=== PATIENT | male | born 1990 | race Caucasian/White ===

== ENCOUNTER 2023-11-23 12:40 | Inpatient (IN) | payer MEDICAID, SELFPAY ==
[2023-11-23 12:44] VITALS: BP 132/87; PULSE 96; RESP 16; TEMP 36.8; O2SAT 100; BMI 19.9
--- NOTE | 2023-11-23 13:07 | ED.PSYCH ---
HPI - Psych General Chief Complaint: Psychiatric Symptoms Stated Complaint: crisis SI Time Seen by Provider: 11/23/23 13:00 Source: patient Mode of arrival: ambulatory Limitations: no limitations History of Present Illness ED Provider: SAM PICKETT Narrative: 32 yo male with PMH of ETOH abuse just seen at [facility] last night for vomiting presents after texting sister with SI and plan to jump off bridge. He notes he was admitted to [facility] after heavy drinking on Tuesday admitted until yesterday AM for afib, ETOH gastritis vomiting blood - had labs, IVF, IV ativan, CT scan of chest. He was discharged not sent home on any medications has not drank since. Came here with continued nausea but also SI. No prior attempts - alludes to being triggered by something on Tuesday. When asked about ETOH seizures he states I am not sure. complaint: suicidal ideation and feels depressed Onset (ago): day(s) (Tuesday) Duration: constant History of same: Yes Relieving factors: none Exacerbating factors: alcohol and other Context: recent alcohol abuse Associated psychiatric symptoms: depression and suicidal ideation Associated symptoms: other (nausea) Treatments prior to arrival: none If self harm: admits thoughts of self harm and has plan Related Data Home Medications ?Medication ?Instructions ?Recorded ?Confirmed No Known Home Meds 11/23/23 11/23/23 Allergies Allergy/AdvReac Type Severity Reaction Status Date / Time No Known Allergies Allergy Verified 11/23/23 12:48 Review of Systems Review of Systems: Constitutional : No Fever, No Chills ENT/Mouth : No Ear Pain, No Nasal Congestion, No sore throat Eyes: No Eye Pain, No Swelling, No Redness Cardiovascular : No Chest Pain, No SOB Respiratory : No Cough, No Sputum, No Dyspnea Gastrointestinal : pos Nausea, No Vomiting, No Diarrhea, No Hematochezia, No Melena Genitourinary : No Dysuria, No Urinary Frequency, No Hematuria Musculoskeletal : No Myalgias Skin : No Skin Lesions, No rash Neuro : No Weakness, No Numbness, No Paresthesias, No Dizziness, No Headache Psych : positive Anxiety, positive Depression, positive SI no HI Heme/Lymph: No Lymphadenopathy Endocrine : No Polyuria, No Polydipsia All other systems reviewed and are negative [facility] Past Medical History Attestation statement: The following information was validated with the patient. Medical History Alcoholic gastritis Afib Alcohol abuse Social History Social History (Updated 11/23/23 @ 13:35 by Nadeen Rosales DO) Alcohol intake: current Alcohol intake frequency: 3 or more drinks per day Patient Tobacco Use Status: Current someday Tobacco user Smoked in Last 30 Days: Yes Use of substances other than those prescribed or required for medical reasons: Yes Substance Use Type: Marijuana Substance Use Frequency: Occasionally Last Used Substance: Days (ago) Any prior treatment program specific to substance use: No Advance Directives: No Nutrition Risks: No Nutritional Risk Physical Exam Vital Signs: Vital Signs: Last Vital Signs Temp 98.7 F 11/23/23 16:38 Pulse 87 11/23/23 16:38 Resp 18 11/23/23 16:38 BP 116/66 11/23/23 16:38 Pulse Ox 97 11/23/23 16:38 O2 Del Method Room Air 11/23/23 16:38 BMI result Body Mass Index 19.9 Appearance: Alert. Oriented X3. No acute distress. no tremors, very withdrawn and flat affect Eyes: Pupils equal, round and reactive to light. ENT: Pharynx normal. Neck: Normal inspection. Neck supple. CVS: Normal heart rate and rhythm. Pulses normal. Respiratory: No respiratory distress. Breath sounds normal. Abdomen: Soft and nontender. Skin: Skin warm and dry. Normal skin color. Normal skin turgor. Extremities: No lower extremity edema. No calf ttp Neuro: Oriented X 3. No motor deficit. No sensory deficit. CN2-12 intact Course Course Course Narrative: [facility] 11/21 discharge hematemesis, diverticulitis - held antibiotics, cleared AG acidosis, WBC downtrended. DC home. Reevaluation(s) Reevaluation #1: observation care revealed that the patient does meet psychiatric necessity for hospitalization. final disposition discussed with the patient. The patient completed observation care at 9pm Medications Administered Generic Name Dose Route Start Last Admin Trade Name Freq PRN Reason Stop Dose Admin Lorazepam 2 mg 11/23/23 13:04 11/23/23 13:22 Lorazepam 1 Mg Tablet PO 2 mg Q3H PRN Administration Alcohol Withdrawal Discontinued Medications Generic Name Dose Route Start Last Admin Trade Name Freq PRN Reason Stop Dose Admin Nicotine 21 mg 11/23/23 15:50 11/23/23 16:08 Nicotine 21 Mg Patch.Td24 TRANSDERMA 11/23/23 15:51 Not Given ONCE ONE Medical Decision Making Medical Decision Making MDM Narrative: 32 yo male with PMH of heavy etoh abuse last drink Tuesday here with c/o SI and depression just had inpatient stay at [facility] trying to get outside records at this time will need labs, PRN ativan, record request, CIWA scale, EKG and consult from [facility]. Differential Diagnosis Differential Diagnoses: The differential diagnosis associated with the presentation includes ETOH abuse, lyte abnormality, SI Admission/Observation Consideration of admission/observation: Escalation of care including admission/observation considered physician observation started at 140pm pending CARE team Consult Healthcare Provider Management of the patient was discussed with: Behavioral Health Provider Lab Data [facility] Lab Attestation statement: I reviewed the patient's lab results. 11/23/23 13:26 11/23/23 13:26 Labs: Lab Results 11/23/23 Range/Units 13:26 WBC 8.4 (4.8-10.8) X10*3/uL RBC 4.01 L (4.60-5.80) X10*6/uL Hgb 12.9 L (14.0-18.0) g/dl Hct 37.7 L (42.0-52.0) % MCV 94.0 (80.0-98.0) fL MCH 32.2 (27.0-33.0) pg MCHC 34.2 (31.0-36.0) g/dl RDW 13.1 (11.0-16.0) % Plt Count 217 (160-400) X10*3/uL MPV 11.1 (9.4-12.4) fL Immature Gran % (Auto) 0.5 H (0.0-0.4) % Neut % (Auto) 72.6 (45-73) % Lymph % (Auto) 15.8 L (20-40) % [place] % (Auto) 10.2 (2-11) % Eos % (Auto) 0.4 (0-4) % Baso % (Auto) 0.5 (0-2) % Lymph # (Auto) 1.3 (1.2-4.9) X10*3/uL [place] # (Auto) 0.9 (0.1-1.2) X10*3/uL Eos # (Auto) 0.0 (0.0-0.4) X10*3/uL Baso # (Auto) 0.0 (0.0-0.2) X10*3/uL Abs Immat Gran (auto) 0.04 H (0.00-0.03) X10*3/uL Absolute Neuts (auto) 6.1 (2.0-8.3) x10*3/uL Absolute Nucleated RBC 0.000 (0.0-0.012) X10*3/uL Nucleated RBC % (auto) 0.0 (0.0-0.2) /100WBC Sodium 141 (135-145) mmol/L Potassium 3.8 (3.3-5.1) mmol/L Chloride 104 (96-108) mmol/L Carbon Dioxide 29 (22-29) mmol/L Anion Gap 12 (12-20) BUN 9 (9-16) mg/dL Creatinine 0.80 (0.5-1.4) mg/dL Estim Creat Clear Calc 108.0 Estimated GFR > 60 Random Glucose 102 (60-115) mg/dL Calcium 9.6 (8.4-10.2) mg/dL Magnesium 2.0 (1.6-2.6) mg/dL Total Bilirubin 0.6 (0.0-1.0) mg/dL AST 20 (5-37) U/L ALT 12 (0-40) U/L Alkaline Phosphatase 64 (39-117) U/L Total Protein 6.6 (6.5-8.0) g/dL Albumin 3.9 (3.5-5.0) g/dL Ethyl Alcohol < 10 mg/dL Independent Interpretation I performed an independent interpretation of an: EKG Interpretation: Rate: 64 Rhythm: NSR [place]: normal Normal P waves. Normal NATALIE. Normal QRS complex. ST T wave : no PAM, inverted t waves V1 and III qTC: 439 prior studies: no acute ischemia The study has been interpreted contemporaneously by me. . External Record Review External record reviewed: Outpatient record Discharge Plan Discharge Clinical Impression: Suicidal ideation, Alcohol use disorder Patient Disposition: Admitted As Inpatient Interventions: [place]-Suicide Risk Severity Scale Last Done: 11/23/23 13:14
[2023-11-23] MEDS: LORazepam 1 MG TABLET 2 MG PO (13:22)
[2023-11-23 13:33] LABS: MANUAL DIFF FLAG NO
--- NOTE | 2023-11-23 13:33 | ECG_ITS ---
Test Reason : qtc andafib as well Blood Pressure : / mmHG Vent. Rate : 064 BPM Atrial Rate : 064 BPM P-R Int : 114 ms QRS Dur : 080 ms QT Int : 426 ms P-R-T Axes : 028 -02 001 degrees QTc Int : 439 ms Normal sinus rhythm Minimal voltage criteria for LVH, may be normal variant ( R in aVL ) Borderline ECG No previous ECGs available Referred By: Nadeen Rosales Electronically Signed By:Jhony Hernadez
[2023-11-23 13:46] LABS: Basophils Percent Auto 0.5 % (0-2); Eosinophils Percent Auto 0.4 % (0-4); Hematocrit 37.7 % (42.0-52.0); Hemoglobin 12.9 g/dl (14.0-18.0); Imm Gran Abs Auto 0.04 X10*3/uL (0.00-0.03); Imm Gran Pct Auto 0.5 % (0.0-0.4); Lymphocytes Absolute Auto 1.3 X10*3/uL (1.2-4.9); Lymphocytes Percent Auto 15.8 % (20-40); Mean Corpuscular HGB Conc 34.2 g/dl (31.0-36.0); Mean Corpuscular Hemoglobin 32.2 pg (27.0-33.0); Mean Platelet Volume 11.1 fL (9.4-12.4); Monocytes Absolute Auto 0.9 X10*3/uL (0.1-1.2); Monocytes Percent Auto 10.2 % (2-11); Neutrophils Absolute Auto 6.1 x10*3/uL (2.0-8.3); Neutrophils Percent Auto 72.6 % (45-73); Platelet Count 217 X10*3/uL (160-400); Red Blood Count 4.01 X10*6/uL (4.60-5.80); Red Cell Distribution Width 13.1 % (11.0-16.0); White Blood Count 8.4 X10*3/uL (4.8-10.8)
[2023-11-23 13:57] LABS: Alanine Aminotransferase 12 U/L (0-40); Albumin Level 3.9 g/dL (3.5-5.0); Alkaline Phosphatase 64 U/L (39-117); Anion Gap 12 (12-20); Aspartate Amino Transferase 20 U/L (5-37); Bilirubin Total 0.6 mg/dL (0.0-1.0); Blood Urea Nitrogen 9 mg/dL (9-16); Calcium 9.6 mg/dL (8.4-10.2); Carbon Dioxide 29 mmol/L (22-29); Chloride 104 mmol/L (96-108); Estimated Glomerular Filt Rate > 60; Ethanol < 10 mg/dL; Glucose Random 102 mg/dL (60-115); Potassium 3.8 mmol/L (3.3-5.1); Sodium 141 mmol/L (135-145); Total Protein 6.6 g/dL (6.5-8.0)
--- NOTE | 2023-11-23 14:45 | PC.NURSE ---
Assumed care of patient at 1430, patient comes in from home after being discharged from [facility] this am. Patient reports that he was at [facility] due to throwing up blood, work up was negative. When he went home he called his sister and told her that he was planning on jumping off a bridge. Sister brought patient to the ER. Patient withdrawn in triage and during assessment with this RN. Patient endorses SI but is unwilling to elaborate on SI thoughts. Patient does endorse drinking regularly, last CIWA of 5 with ativan administered per JUN. Patient appears to be in no apparent distress at this time. Continue plan of care for CARE team assessment and dispo
[2023-11-23 15:07] VITALS: RESP 14
--- NOTE | 2023-11-23 15:40 | MHC.CARE ---
Patient evaluated by the CARE Team, disposition determined to be inpatient psychiatric care.
[2023-11-23 16:38] VITALS: BP 116/66; PULSE 87; RESP 18; TEMP 37.1; O2SAT 97
--- NOTE | 2023-11-23 18:02 | PC.NURSE ---
late entry: patient moved from ED 14 to pod 4. Patient offers no complaints, reports he cannot provide urine sample at that time. Patient now sleeping, respirations even and unlabored, no apparent distress noted
--- NOTE | 2023-11-23 18:17 | PC.NURSE ---
This RN verified home medications with patient. Patient verbalized that he takes no home medications and is not prescribed anything. This is reflected in the medication reconciliation in the chart
--- NOTE | 2023-11-23 19:28 | PC.NURSE ---
patient appears to remain at rest at present respirations are even and unlabored patient appears in no distress
[2023-11-23 22:10] VITALS: BP 124/85; PULSE 75; RESP 20; TEMP 36.6; O2SAT 98
[2023-11-23] MEDS: hydrOXYzine HCL 25 MG TABLET PO (22:25)
[2023-11-23] MEDS: traZODone HCL 50 MG TABLET PO (22:25)
--- NOTE | 2023-11-23 23:32 | PC.ADMIT ---
32 year old male with a PMH of Afib, alcohol use disorder, and alcoholic gastritis causing hematemesis. He was hospitalized at [facility] for vomiting blood, but was released and told his sister that he would find a bridge and jump off it. He was then brought [place] [facility] Skin check completed, notable only for a large bruise on the inside of his upper left arm. He is on CIWAs Q4, but not currently scoring. He denies HI and physical pain; endorses SI, but denies a plan. Denies AH/VH, but appears to be watching something moving in the room. Rates both anxiety and depression at 10/10. Patient states he has not eaten since Tuesday, and refuses to fill out menu, because it's a waste of time. Declines to participate in the assessment and retired to bed.
[2023-11-24 02:30] VITALS: BMI 19.9
--- NOTE | 2023-11-24 03:30 | PC.ADMIT ---
32 year old male CV with 15 minute checks. PMH of Afib, alcohol use disorder, and alcoholic gastritis causing hematemesis. He was hospitalized at [facility] for vomiting blood, but was released and told his sister that he would find a bridge and jump off it. He was then brought here to [facility]. Skin check completed, notable only for a large bruise on the inside of his upper left arm. He is on CIWAs Q4, but not currently scoring. He denies HI and physical pain; endorses SI, but denies a plan. Denies AH/VH, but appears to be watching something moving in the room. Rates both anxiety and depression at 10/10. Patient states he has not eaten since Tuesday, and refuses to fill out menu, because it's a waste of time. Declines to participate in the assessment and retired to bed.
[2023-11-24 08:00] VITALS: BP 102/58; PULSE 70; RESP 18; TEMP 36.1; O2SAT 98
[2023-11-24 09:04] LABS: Alanine Aminotransferase 12 U/L (0-40); Albumin Level 3.9 g/dL (3.5-5.0); Alkaline Phosphatase 68 U/L (39-117); Anion Gap 13 (12-20); Aspartate Amino Transferase 20 U/L (5-37); Bilirubin Total 0.8 mg/dL (0.0-1.0); Blood Urea Nitrogen 9 mg/dL (9-16); Calcium 9.5 mg/dL (8.4-10.2); Carbon Dioxide 29 mmol/L (22-29); Chloride 104 mmol/L (96-108); Cholesterol 134 mg/dL (<200); Creatinine Clr Calc Pharmacy 118.2; Estimated Glomerular Filt Rate > 60; Glucose Fasting 79 mg/dL (60-99); HDL Cholesterol 49 mg/dL (>40); LDL Cholesterol Calculated 64 mg/dL (<100); Potassium 3.9 mmol/L (3.3-5.1); Sodium 142 mmol/L (135-145); Total Protein 6.8 g/dL (6.5-8.0); Triglycerides 108 mg/dL (<150)
[2023-11-24 10:33] LABS: Appearance Urine Cloudy; Color Urine Yellow; Glucose Urine UA Negative (Negative); Leukocyte Esterase Urine Negative (Negative); Nitrite Urine Negative (Negative); PH 6.5 (5.0-9.0); Specific Gravity - Urine 1.025 (1.005-1.025); Urine Blood Negative (Negative); Urine Ketones 80 mg/dL (Negative); Urine Protein Negative (Neg-Trace)
[2023-11-24 10:56] LABS: Amphetamine Screen Urine Not Detected (Not Detect); Barbiturates, Urine Not Detected (Not Detect); Benzodiazepines Screen Urine Not Detected (Not Detect); Buprenorphine Scr Not Detected (Not Detect); Cannabinoid Screen Urine POSITIVE (Not Detect); Cocaine Screen Urine Not Detected (Not Detect); Fentanyl, urine Not Detected (Not Detect); Methadone Screen, Urine Not Detected (Not Detect); Opiate Screen Urine Not Detected (Not Detect); Oxycodone Screen Urine Not Detected (Not Detect); Phencyclidine Screen Urine Not Detected (Not Detect)
[2023-11-24] MEDS: Famotidine 20 MG TABLET PO ×2 (11:13→21:24)
[2023-11-24] MEDS: Thiamine HCL 100 MG TABLET PO (11:13)
[2023-11-24] MEDS: Folic Acid 1 MG TABLET PO (11:14)
--- NOTE | 2023-11-24 11:39 | P.HPPS_ITS ---
HPI Date of Service: 11/24/23 Chief Complaint: SI Sources of Information: patient interviewed (11/24/23 2pm), chart reviewed and crisis/core team assessment reviewed HPI Subjective Notes: Harris Warning and Conditional Voluntary Healthcare Proxy: No Guardianship: No Medical Problems Affecting Mental Status: No Narrative: 32 yo male, to ER with sister after ER reporting SI with plan to jump from a bridge into [facility]. Recent ER visit to [facility] for afib, dehydration, vomiting of blood. Reports not eating since ~11/17. Precipitants include ex girlfriend coming to his apartment to get her remaining belongings-she abruptly decided to take the cat they owned together. This was in front of pt's 10 yo daughter who was quite upset as was pt. 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 He now has no income or health insurance. Reports social anxiety, learning disability (cannot get a GED as he has difficulties with math). Reports binge alcohol use which has increased to manage stressors. States he would like not to be sad. Past Psychiatric History: IP: Denies OP: Denies Trials: Denies, except Ambien Medical Evaluation Reviewed: Yes [facility] Medical History PTSD (post-traumatic stress disorder) Major depression Alcoholic gastritis Afib Alcohol abuse Family History: [id number]-[id number] Social History: Born, raised in [place], one brother, two half sisters, one half brother Family lost their home, pets, (dog, 2 cats, bird) belongings when pt was in middle school due to father's drug use IEP during school. Did not graduate. Did not completed GED due to math component. Lives alone in an apartment. Has 10 yo daughter every other week. Apartrment building is owned by a family member and may be sold soon, pt may need to move. Recent resignation from his job in customer service at an [employer] due to the stress of the kind of work he was doing Substance History: Alcohol-binge drinking with increase Cannabis Trauma History: Father while watching pt's daughter who was 5 at the time. He was using heroin. Family reports pt has declined since that loss. Diagnostics Vital Signs (24Hr): Vital Signs - 24 hr 11/23/23 12:44 11/23/23 15:07 11/23/23 16:38 Temperature 98.3 F 98.7 F Pulse Rate 96 87 Respiratory Rate 16 14 18 Blood Pressure 132/87 116/66 Pulse Oximetry 100 97 Oxygen Delivery Method Room Air Room Air 11/23/23 22:10 11/24/23 08:00 Temperature 97.9 F 97 F Pulse Rate 75 70 Respiratory Rate 20 18 Blood Pressure 124/85 102/58 L Pulse Oximetry 98 98 Oxygen Delivery Method Room Air Room Air BMI result Body Mass Index 19.9 Labs 11/23/23 13:26 11/24/23 08:33 Labs: Laboratory Results - last 48 hr 11/23/23 11/24/23 11/24/23 13:26 08:33 Unknown WBC 8.4 RBC 4.01 L Hgb 12.9 L Hct 37.7 L MCV 94.0 MCH 32.2 MCHC 34.2 RDW 13.1 Plt Count 217 MPV 11.1 Immature Gran % (Auto) 0.5 H Neut % (Auto) 72.6 Lymph % (Auto) 15.8 L [place] % (Auto) 10.2 Eos % (Auto) 0.4 Baso % (Auto) 0.5 Lymph # (Auto) 1.3 [place] # (Auto) 0.9 Eos # (Auto) 0.0 Baso # (Auto) 0.0 Abs Immat Gran (auto) 0.04 H Absolute Neuts (auto) 6.1 Absolute Nucleated RBC 0.000 Nucleated RBC % (auto) 0.0 Sodium 141 142 Potassium 3.8 3.9 Chloride 104 104 Carbon Dioxide 29 29 Anion Gap 12 13 BUN 9 9 Creatinine 0.80 0.73 Estim Creat Clear Calc 108.0 118.2 Estimated GFR > 60 > 60 Random Glucose 102 Fasting Glucose 79 Calcium 9.6 9.5 Magnesium 2.0 Total Bilirubin 0.6 0.8 AST 20 20 ALT 12 12 Alkaline Phosphatase 64 68 Total Protein 6.6 6.8 Albumin 3.9 3.9 Triglycerides 108 Cholesterol 134 LDL Cholesterol, Calc 64 HDL Cholesterol 49 Urine Color Yellow Urine Appearance Cloudy Urine pH 6.5 Ur Specific [place] 1.025 Urine Protein Negative Urine Glucose (UA) Negative Urine Ketones 80 Urine Blood Negative Urine Nitrite Negative Ur Leukocyte Esterase Negative Urine Opiates Screen Not Detected Ur Buprenorphine Scrn Not Detected Ur Oxycodone Screen Not Detected Urine Methadone Screen Not Detected Urine Fentanyl Screen Not Detected Ur Barbiturates Screen Not Detected Ur Phencyclidine Scrn Not Detected Ur Amphetamines Screen Not Detected U Benzodiazepines Scrn Not Detected Urine Cocaine Screen Not Detected U Marijuana (THC) Screen POSITIVE H Ethyl Alcohol < 10 Meds/Allergies Meds Home Medications ?Medication ?Instructions ?Recorded ?Confirmed ?Type No Known Home Meds 11/23/23 11/23/23 History Allergies Allergies Allergy/AdvReac Type Severity Reaction Status Date / Time No Known Allergies Allergy Verified 11/23/23 12:48 Mental Status Exam Mental Status Exam Patient Appearance: Fatigued Patient Orientation: Person, Place, Time and Situation Level of Consciousness: Alert Patient Behavior: Talkative and Poor Eye Contact Mood Description: Depressed and Angry Affect Description: Flat Patient Cognition Impaired: No Ability to Follow Directions: Good Speech Pattern: Spontaneous Speech Memory Description: Intact Hallucinations: None Delusions: Not Present Perceptual Disturbances: Depersonalization and Derealization Thought Process: Rumination Thought Content: positive for Perseveration and positive for Suicidal Ideation (denies) Depressive Symptoms: Increased Irritability, Hopelessness, Unhappiness, Thoughts of /Suicide (denies) and Low Self Esteem Judgement: Fair Assessment & Plan Assessment & Plan (1) Major depression: Status: Acute Code(s): F32.9 - Major depressive disorder, single episode, unspecified (2) PTSD (post-traumatic stress disorder): Status: Acute Code(s): F43.10 - Post-traumatic stress disorder, unspecified (3) Alcohol use disorder: Status: Acute Code(s): F10.90 - Alcohol use, unspecified, uncomplicated (4) Suicidal ideation: Status: Acute Code(s): R45.851 - Suicidal ideations Plan PTSD, Major Depression, Alcohol Use Disorder, Suicidal Ideation. Plan: Admit, CV, 15 minute checks Encourage milieu B12, Folate, TSH, Iron Profile CIWA, Ativan detox, vitamin replacement Sertraline 25 mg a.m. Olanzapine 5 mg q4h prn Collateral contact [facility] referral Discharge planning. Patient educated on: therapeutic strategies Reason for continued inpatient stay Substantial Risk for: rapid decompensation Statement Statement: I have reviewed the history and physical and performed a pertinent examination on my patient. No changes have occurred unless specified. If the History and Physical was not performed prior to admission, the Hospitalist's service will be consulted for completing the admission physical. Time Spent With Patient Time: Total time managing care of this patient today ____ minutes.
[2023-11-24 16:00] VITALS: BP 120/85; PULSE 67
[2023-11-24 20:00] VITALS: BP 125/78; PULSE 99; TEMP 36.4
[2023-11-24] MEDS: traZODone HCL 50 MG TABLET PO (21:23)
[2023-11-24 21:25] VITALS: BP 116/67; PULSE 56; TEMP 36.4
[2023-11-25 00:40] VITALS: BP 115/60; PULSE 71; TEMP 36.1
[2023-11-25 04:40] VITALS: BP 116/64; PULSE 62; TEMP 36.4
[2023-11-25 08:36] VITALS: BP 144/88; PULSE 65; RESP 16; TEMP 36.6; O2SAT 97
[2023-11-25] MEDS: Sertraline HCL 25 MG TABLET PO (08:47)
[2023-11-25] MEDS: Folic Acid 1 MG TABLET PO (08:47)
[2023-11-25] MEDS: Famotidine 20 MG TABLET PO ×2 (08:47→20:08)
[2023-11-25] MEDS: Multivitamin TABLET 1 TAB PO (08:47)
[2023-11-25] MEDS: Thiamine HCL 100 MG TABLET PO (08:48)
[2023-11-25 08:59] LABS: Iron 26 mcg/dL (45-160); Percent Iron Saturation 11 % (15-50); Total Iron Binding Capacity 232 mcg/dL (228-428); Unsaturated Iron Binding 206 ug/dL
[2023-11-25 09:15] LABS: Thyroid Stimulating Hormone 3.07 uIU/mL (0.32-4.0)
[2023-11-25 09:27] LABS: Folate 10.9 ng/mL (> or = 4.0); Vitamin B12 906 pg/mL (200-900)
--- NOTE | 2023-11-25 11:10 | MHC.RECOVRN ---
AUDIT-C Brief Intervention Pt had positive screen for unhealthy alcohol use on admission. Attempted to meet with pt to discuss alcohol use and offer resources, pt declined.
--- NOTE | 2023-11-25 11:56 | HO.PSYCHPN ---
Subjective Subjective Date of Service: 11/25/23 Reason For Visit: SI Subjective Notes: Conditional Voluntary Healthcare Proxy: No Guardianship: No Medical Problems Affecting Mental Status: No Interim History: Tolerating Sertraline. Denies SI/HI/AH/VH Reports feeling positive about options discussed on 11/23. Meeting scheduled with pt and mother of his daughter for 11/27 10:30am Pt interested in Naltrexone, PHP, OP treatment. Encouraged to attend groups. Discussed precipitants to current crisis, loss of cat, triggering event to loss of pets in childhood and how triggers may effect us in general. Medication Compliance: Yes Side effects from medications: No Attending Groups: No Review of Systems Acute medical concerns: No Attempting to eat Medical Review of Systems: unchanged Review of Systems Review of Systems Yes all other systems are reviewed and are negative Mental Status Exam Mental Status Exam Patient Appearance: Appropriate Patient Orientation: Person, Place, Time and Situation Level of Consciousness: Alert Patient Behavior: Appropriate, Talkative, Cooperative and Good Eye Contact Mood Description: Depressed Affect Description: Flat Patient Cognition Impaired: No Ability to Follow Directions: Good Speech Pattern: Spontaneous Speech Memory Description: Intact Hallucinations: None Delusions: Not Present Perceptual Disturbances: Depersonalization and Derealization Thought Process: Intact and Goal Oriented Thought Content: positive for Intact, positive for Goal Oriented and positive for Suicidal Ideation (denies) Depressive Symptoms: Increased Anxiety Judgement: Good Diagnostics Vital Signs (24Hr): Vital Signs - 24 hr 11/24/23 16:00 11/24/23 20:00 11/24/23 21:25 Temperature 97.6 F 97.5 F Pulse Rate 67 99 56 Respiratory Rate Blood Pressure 120/85 125/78 116/67 Pulse Oximetry Oxygen Delivery Method 11/25/23 00:40 11/25/23 04:40 11/25/23 08:36 Temperature 97.0 F 97.5 F 97.9 F Pulse Rate 71 62 65 Respiratory Rate 16 Blood Pressure 115/60 116/64 144/88 H Pulse Oximetry 97 Oxygen Delivery Method Room Air BMI result Body Mass Index 19.9 Labs 11/23/23 13:26 11/24/23 08:33 Labs: Laboratory Results - last 48 hr 11/23/23 11/24/23 11/24/23 13:26 08:33 Unknown WBC 8.4 RBC 4.01 L Hgb 12.9 L Hct 37.7 L MCV 94.0 MCH 32.2 MCHC 34.2 RDW 13.1 Plt Count 217 MPV 11.1 Immature Gran % (Auto) 0.5 H Neut % (Auto) 72.6 Lymph % (Auto) 15.8 L [place] % (Auto) 10.2 Eos % (Auto) 0.4 Baso % (Auto) 0.5 Lymph # (Auto) 1.3 [place] # (Auto) 0.9 Eos # (Auto) 0.0 Baso # (Auto) 0.0 Abs Immat Gran (auto) 0.04 H Absolute Neuts (auto) 6.1 Absolute Nucleated RBC 0.000 Nucleated RBC % (auto) 0.0 Sodium 141 142 Potassium 3.8 3.9 Chloride 104 104 Carbon Dioxide 29 29 Anion Gap 12 13 BUN 9 9 Creatinine 0.80 0.73 Estim Creat Clear Calc 108.0 118.2 Estimated GFR > 60 > 60 Random Glucose 102 Fasting Glucose 79 Calcium 9.6 9.5 Magnesium 2.0 Iron TIBC % Saturation Unsat Iron Binding Total Bilirubin 0.6 0.8 AST 20 20 ALT 12 12 Alkaline Phosphatase 64 68 Total Protein 6.6 6.8 Albumin 3.9 3.9 Triglycerides 108 Cholesterol 134 LDL Cholesterol, Calc 64 HDL Cholesterol 49 Vitamin B12 Folate TSH Urine Color Yellow Urine Appearance Cloudy Urine pH 6.5 Ur Specific [place] 1.025 Urine Protein Negative Urine Glucose (UA) Negative Urine Ketones 80 Urine Blood Negative Urine Nitrite Negative Ur Leukocyte Esterase Negative Urine Opiates Screen Not Detected Ur Buprenorphine Scrn Not Detected Ur Oxycodone Screen Not Detected Urine Methadone Screen Not Detected Urine Fentanyl Screen Not Detected Ur Barbiturates Screen Not Detected Ur Phencyclidine Scrn Not Detected Ur Amphetamines Screen Not Detected U Benzodiazepines Scrn Not Detected Urine Cocaine Screen Not Detected U Marijuana (THC) Screen POSITIVE H Ethyl Alcohol < 10 11/25/23 08:14 WBC RBC Hgb Hct MCV MCH MCHC RDW Plt Count MPV Immature Gran % (Auto) Neut % (Auto) Lymph % (Auto) [place] % (Auto) Eos % (Auto) Baso % (Auto) Lymph # (Auto) [place] # (Auto) Eos # (Auto) Baso # (Auto) Abs Immat Gran (auto) Absolute Neuts (auto) Absolute Nucleated RBC Nucleated RBC % (auto) Sodium Potassium Chloride Carbon Dioxide Anion Gap BUN Creatinine Estim Creat Clear Calc Estimated GFR Random Glucose Fasting Glucose Calcium Magnesium Iron 26 L TIBC 232 % Saturation 11 L Unsat Iron Binding 206 Total Bilirubin AST ALT Alkaline Phosphatase Total Protein Albumin Triglycerides Cholesterol LDL Cholesterol, Calc HDL Cholesterol Vitamin B12 906 H Folate 10.9 TSH 3.07 Urine Color Urine Appearance Urine pH Ur Specific [place] Urine Protein Urine Glucose (UA) Urine Ketones Urine Blood Urine Nitrite Ur Leukocyte Esterase Urine Opiates Screen Ur Buprenorphine Scrn Ur Oxycodone Screen Urine Methadone Screen Urine Fentanyl Screen Ur Barbiturates Screen Ur Phencyclidine Scrn Ur Amphetamines Screen U Benzodiazepines Scrn Urine Cocaine Screen U Marijuana (THC) Screen Ethyl Alcohol Medications Medications Current Medications Acetaminophen (Acetaminophen 325 Mg Tablet) 650 mg PO Q6H PRN PRN Reason: Headache/Pain Mild Scale (1-3) Al Hydroxide/Mg Hydroxide (Magnesium Hydrox/Alum Hydrox 30 Ml Oral.Susp) 30 ml PO Q6H PRN PRN Reason: Heartburn/Nausea Famotidine (Famotidine 20 Mg Tablet) 20 mg PO BID [facility] Last Admin: 11/25/23 08:47 Dose: 20 mg Folic Acid (Folic Acid 1 Mg Tablet) 1 mg PO DAILY [facility] Last Admin: 11/25/23 08:47 Dose: 1 mg Hydroxyzine HCl (Hydroxyzine Hcl 25 Mg Tablet) 25 mg PO Q6H PRN PRN Reason: Anxiety Last Admin: 11/23/23 22:25 Dose: 25 mg Lorazepam (Lorazepam 1 Mg Tablet) 1 mg PO Q2H PRN PRN Reason: CIWA 6-10 Lorazepam (Lorazepam 1 Mg Tablet) 2 mg PO Q2H PRN PRN Reason: CIWA 11 and above Magnesium Hydroxide (Milk Of Magnesia 30 Ml Oral.Susp) 30 ml PO DAILY PRN PRN Reason: Constipation Multivitamins/Vitamin C (Multivitamin Tablet) 1 tab PO DAILY [facility] Last Admin: 11/25/23 08:47 Dose: 1 tab Olanzapine (Olanzapine 5 Mg Tablet) 5 mg PO Q4H PRN PRN Reason: agitation, lability Sertraline HCl (Sertraline Hcl 25 Mg Tablet) 25 mg PO DAILY [facility] Last Admin: 11/25/23 08:47 Dose: 25 mg Thiamine HCl (Thiamine Hcl 100 Mg Tablet) 100 mg PO DAILY [facility] Last Admin: 11/25/23 08:48 Dose: 100 mg Trazodone HCl (Trazodone Hcl 50 Mg Tablet) 50 mg PO BEDTIME MRX1 PRN PRN Reason: Insomnia Last Admin: 11/24/23 21:23 Dose: 50 mg Allergies Allergies Allergy/AdvReac Type Severity Reaction Status Date / Time No Known Allergies Allergy Verified 11/23/23 12:48 Assessment & Plan Assessment & Plan (1) Major depression: Status: Acute Code(s): F32.9 - Major depressive disorder, single episode, unspecified (2) PTSD (post-traumatic stress disorder): Status: Acute Code(s): F43.10 - Post-traumatic stress disorder, unspecified (3) Alcohol use disorder: Status: Acute Code(s): F10.90 - Alcohol use, unspecified, uncomplicated (4) Suicidal ideation: Status: Acute Code(s): R45.851 - Suicidal ideations Plan PTSD, Major Depression, Alcohol Use Disorder, Suicidal Ideation. Plan: Admit, CV, 15 minute checks Encourage milieu B12, Folate, TSH, Iron Profile CIWA, Ativan detox, vitamin replacement Sertraline 25 mg a.m. Olanzapine 5 mg q4h prn Collateral contact [facility] referral Discharge planning. 11/24: Naltrexone 50 mg a.m. Family meeting on 11/27 10:30 a.m. Informed Consent: understands Reason for continued inpatient stay Substantial Risk for: rapid decompensation and med/psych decompensation Time Spent With Patient Time: Total time managing care of this patient today ____ minutes.
[2023-11-25 12:00] VITALS: BP 120/78; PULSE 70
[2023-11-25 20:00] VITALS: BP 131/77; PULSE 77; RESP 16; TEMP 36.8; O2SAT 97
[2023-11-25] MEDS: traZODone HCL 50 MG TABLET PO (20:08)
[2023-11-26 08:00] VITALS: BP 121/84; PULSE 72; RESP 16; TEMP 36.2; O2SAT 98
[2023-11-26] MEDS: Famotidine 20 MG TABLET PO ×2 (08:32→20:05)
[2023-11-26] MEDS: Thiamine HCL 100 MG TABLET PO (08:32)
[2023-11-26] MEDS: Naltrexone HCl 50 MG TABLET PO (08:32)
[2023-11-26] MEDS: Sertraline HCL 25 MG TABLET PO (08:32)
[2023-11-26] MEDS: Folic Acid 1 MG TABLET PO (08:33)
[2023-11-26] MEDS: Multivitamin TABLET 1 TAB PO (08:33)
--- NOTE | 2023-11-26 09:38 | P.PNPSI_ITS ---
Subjective Subjective Date of Service: 11/26/23 Reason For Visit: SI Interim History: met with patient. Discussed with Nursing. Overall reports things have significantly improved. Mood better. Motivated for discharge after the weekend. Looking forward to outpatient care. Looking forward to seeing his 10-year-old daughter. Will be seeking employment. Feels positive regarding medications for mood and also starting naltrexone. Medication Compliance: Yes Side effects from medications: No Attending Groups: Yes Review of Systems Acute medical concerns: No Review of Systems Review of Systems Yes all other systems are reviewed and are negative Mental Status Exam Mental Status Exam Narrative: Pleasant. Engaged. Casually dressed and presented. Organized. Euthymic. No SI. No HI. No agitation. No psychosis. Insight and judgment fair Diagnostics Vital Signs (24Hr): Vital Signs - 24 hr 11/25/23 12:00 11/25/23 20:00 Temperature 98.2 F Pulse Rate 70 77 Respiratory Rate 16 Blood Pressure 120/78 131/77 Pulse Oximetry 97 Oxygen Delivery Method Room Air BMI result Body Mass Index 19.9 Labs 11/23/23 13:26 11/24/23 08:33 Labs: Laboratory Results - last 48 hr 11/24/23 11/25/23 Unknown 08:14 Iron 26 L TIBC 232 % Saturation 11 L Unsat Iron Binding 206 Vitamin B12 906 H Folate 10.9 TSH 3.07 Urine Color Yellow Urine Appearance Cloudy Urine pH 6.5 Ur Specific [place] 1.025 Urine Protein Negative Urine Glucose (UA) Negative Urine Ketones 80 Urine Blood Negative Urine Nitrite Negative Ur Leukocyte Esterase Negative Urine Opiates Screen Not Detected Ur Buprenorphine Scrn Not Detected Ur Oxycodone Screen Not Detected Urine Methadone Screen Not Detected Urine Fentanyl Screen Not Detected Ur Barbiturates Screen Not Detected Ur Phencyclidine Scrn Not Detected Ur Amphetamines Screen Not Detected U Benzodiazepines Scrn Not Detected Urine Cocaine Screen Not Detected U Marijuana (THC) Screen POSITIVE H Medications Medications Current Medications Acetaminophen (Acetaminophen 325 Mg Tablet) 650 mg PO Q6H PRN PRN Reason: Headache/Pain Mild Scale (1-3) Al Hydroxide/Mg Hydroxide (Magnesium Hydrox/Alum Hydrox 30 Ml Oral.Susp) 30 ml PO Q6H PRN PRN Reason: Heartburn/Nausea Famotidine (Famotidine 20 Mg Tablet) 20 mg PO BID [facility] Last Admin: 11/26/23 08:32 Dose: 20 mg Folic Acid (Folic Acid 1 Mg Tablet) 1 mg PO DAILY [facility] Last Admin: 11/26/23 08:33 Dose: 1 mg Hydroxyzine HCl (Hydroxyzine Hcl 25 Mg Tablet) 25 mg PO Q6H PRN PRN Reason: Anxiety Last Admin: 11/23/23 22:25 Dose: 25 mg Lorazepam (Lorazepam 1 Mg Tablet) 1 mg PO Q2H PRN PRN Reason: CIWA 6-10 Lorazepam (Lorazepam 1 Mg Tablet) 2 mg PO Q2H PRN PRN Reason: CIWA 11 and above Magnesium Hydroxide (Milk Of Magnesia 30 Ml Oral.Susp) 30 ml PO DAILY PRN PRN Reason: Constipation Multivitamins/Vitamin C (Multivitamin Tablet) 1 tab PO DAILY [facility] Last Admin: 11/26/23 08:33 Dose: 1 tab Naltrexone HCl (Naltrexone Hcl 50 Mg Tablet) 50 mg PO DAILY [facility] Last Admin: 11/26/23 08:32 Dose: 50 mg Olanzapine (Olanzapine 5 Mg Tablet) 5 mg PO Q4H PRN PRN Reason: agitation, lability Sertraline HCl (Sertraline Hcl 25 Mg Tablet) 25 mg PO DAILY [facility] Last Admin: 11/26/23 08:32 Dose: 25 mg Thiamine HCl (Thiamine Hcl 100 Mg Tablet) 100 mg PO DAILY [facility] Last Admin: 11/26/23 08:32 Dose: 100 mg Trazodone HCl (Trazodone Hcl 50 Mg Tablet) 50 mg PO BEDTIME MRX1 PRN PRN Reason: Insomnia Last Admin: 11/25/23 20:08 Dose: 50 mg Allergies Allergies Allergy/AdvReac Type Severity Reaction Status Date / Time No Known Allergies Allergy Verified 11/23/23 12:48 Assessment & Plan Assessment & Plan (1) Major depression: Status: Acute Code(s): F32.9 - Major depressive disorder, single episode, unspecified (2) PTSD (post-traumatic stress disorder): Status: Acute Code(s): F43.10 - Post-traumatic stress disorder, unspecified (3) Alcohol use disorder: Status: Acute Code(s): F10.90 - Alcohol use, unspecified, uncomplicated (4) Suicidal ideation: Status: Acute Code(s): R45.851 - Suicidal ideations Plan PTSD, Major Depression, Alcohol Use Disorder, Suicidal Ideation. Plan: Admit, CV, 15 minute checks Encourage milieu B12, Folate, TSH, Iron Profile CIWA, Ativan detox, vitamin replacement Sertraline 25 mg a.m. Olanzapine 5 mg q4h prn Collateral contact [facility] referral Discharge planning. 11/24: Naltrexone 50 mg a.m. Family meeting on 11/27 10:30 a.m. 11/26/2023: No changes Reason for continued inpatient stay Substantial Risk for: rapid decompensation Time Spent With Patient Time: Total time managing care of this patient today ____ minutes.
[2023-11-26 20:00] VITALS: BP 127/81; PULSE 60; RESP 16; TEMP 36.6; O2SAT 98
[2023-11-26] MEDS: traZODone HCL 50 MG TABLET PO (20:05)
[2023-11-27 08:00] VITALS: BP 135/82; PULSE 72; RESP 16; TEMP 36.4; O2SAT 99
--- NOTE | 2023-11-27 08:40 | HO.PSYCHPN ---
Subjective Subjective Date of Service: 11/27/23 Reason For Visit: SI Interim History: met with patient. Discussed with Nursing. Overall reports things have significantly improved. Mood better. Sleep good. Energy and appetite okay.. Motivated for discharge. Looking forward to meeting with his daughter's mom tomorrow, so she can be comfortable around co-parenting. Very appropriate perspective regarding same. Also hopeful for outpatient support. Continues to feel positive around medication regimen including antidepressant naltrexone. No side effects. Medication Compliance: Yes Side effects from medications: No Attending Groups: Yes Review of Systems Acute medical concerns: No Review of Systems Review of Systems Yes all other systems are reviewed and are negative Mental Status Exam Mental Status Exam Narrative: Pleasant. Engaged. Casually dressed and presented. Organized. Euthymic. No SI. No HI. No agitation. No psychosis. Insight and judgment fair Diagnostics Vital Signs (24Hr): Vital Signs - 24 hr 11/26/23 20:00 Temperature 97.8 F Pulse Rate 60 Respiratory Rate 16 Blood Pressure 127/81 Pulse Oximetry 98 Oxygen Delivery Method Room Air BMI result Body Mass Index 19.9 Labs 11/23/23 13:26 11/24/23 08:33 Labs: Laboratory Results - last 48 hr 11/25/23 08:14 Iron 26 L TIBC 232 % Saturation 11 L Unsat Iron Binding 206 Vitamin B12 906 H Folate 10.9 TSH 3.07 Medications Medications Current Medications Acetaminophen (Acetaminophen 325 Mg Tablet) 650 mg PO Q6H PRN PRN Reason: Headache/Pain Mild Scale (1-3) Al Hydroxide/Mg Hydroxide (Magnesium Hydrox/Alum Hydrox 30 Ml Oral.Susp) 30 ml PO Q6H PRN PRN Reason: Heartburn/Nausea Famotidine (Famotidine 20 Mg Tablet) 20 mg PO BID [facility] Last Admin: 11/26/23 20:05 Dose: 20 mg Folic Acid (Folic Acid 1 Mg Tablet) 1 mg PO DAILY [facility] Last Admin: 11/26/23 08:33 Dose: 1 mg Hydroxyzine HCl (Hydroxyzine Hcl 25 Mg Tablet) 25 mg PO Q6H PRN PRN Reason: Anxiety Last Admin: 11/23/23 22:25 Dose: 25 mg Lorazepam (Lorazepam 1 Mg Tablet) 1 mg PO Q2H PRN PRN Reason: CIWA 6-10 Lorazepam (Lorazepam 1 Mg Tablet) 2 mg PO Q2H PRN PRN Reason: CIWA 11 and above Magnesium Hydroxide (Milk Of Magnesia 30 Ml Oral.Susp) 30 ml PO DAILY PRN PRN Reason: Constipation Multivitamins/Vitamin C (Multivitamin Tablet) 1 tab PO DAILY [facility] Last Admin: 11/26/23 08:33 Dose: 1 tab Naltrexone HCl (Naltrexone Hcl 50 Mg Tablet) 50 mg PO DAILY [facility] Last Admin: 11/26/23 08:32 Dose: 50 mg Olanzapine (Olanzapine 5 Mg Tablet) 5 mg PO Q4H PRN PRN Reason: agitation, lability Sertraline HCl (Sertraline Hcl 25 Mg Tablet) 25 mg PO DAILY [facility] Last Admin: 11/26/23 08:32 Dose: 25 mg Thiamine HCl (Thiamine Hcl 100 Mg Tablet) 100 mg PO DAILY [facility] Last Admin: 11/26/23 08:32 Dose: 100 mg Trazodone HCl (Trazodone Hcl 50 Mg Tablet) 50 mg PO BEDTIME MRX1 PRN PRN Reason: Insomnia Last Admin: 11/26/23 20:05 Dose: 50 mg Allergies Allergies Allergy/AdvReac Type Severity Reaction Status Date / Time No Known Allergies Allergy Verified 11/23/23 12:48 Assessment & Plan Assessment & Plan (1) Major depression: Status: Acute Code(s): F32.9 - Major depressive disorder, single episode, unspecified (2) PTSD (post-traumatic stress disorder): Status: Acute Code(s): F43.10 - Post-traumatic stress disorder, unspecified (3) Alcohol use disorder: Status: Acute Code(s): F10.90 - Alcohol use, unspecified, uncomplicated (4) Suicidal ideation: Status: Acute Code(s): R45.851 - Suicidal ideations Plan PTSD, Major Depression, Alcohol Use Disorder, Suicidal Ideation. Plan: Admit, CV, 15 minute checks Encourage milieu B12, Folate, TSH, Iron Profile CIWA, Ativan detox, vitamin replacement Sertraline 25 mg a.m. Olanzapine 5 mg q4h prn Collateral contact [facility] referral Discharge planning. 11/24: Naltrexone 50 mg a.m. Family meeting on 11/27 10:30 a.m. 11/27/2023: No changes Reason for continued inpatient stay Substantial Risk for: rapid decompensation Time Spent With Patient Time: Total time managing care of this patient today ____ minutes.
[2023-11-27] MEDS: Folic Acid 1 MG TABLET PO (09:00)
[2023-11-27] MEDS: Sertraline HCL 25 MG TABLET PO (09:00)
[2023-11-27] MEDS: Famotidine 20 MG TABLET PO ×2 (09:00→20:41)
[2023-11-27] MEDS: Multivitamin TABLET 1 TAB PO (09:00)
[2023-11-27] MEDS: Thiamine HCL 100 MG TABLET PO (09:00)
[2023-11-27] MEDS: Naltrexone HCl 50 MG TABLET PO (09:00)
[2023-11-27] MEDS: Acetaminophen 325 MG TABLET 650 MG PO (17:06)
[2023-11-27 19:44] VITALS: BP 124/86; PULSE 66; TEMP 36.4; O2SAT 98
[2023-11-27] MEDS: traZODone HCL 50 MG TABLET PO (20:43)
[2023-11-28 08:05] VITALS: BP 99/57; PULSE 85; RESP 14; TEMP 36.4; O2SAT 98
[2023-11-28] MEDS: Folic Acid 1 MG TABLET PO (08:50)
[2023-11-28] MEDS: Famotidine 20 MG TABLET PO (08:50)
[2023-11-28] MEDS: Multivitamin TABLET 1 TAB PO (08:50)
[2023-11-28] MEDS: Thiamine HCL 100 MG TABLET PO (08:51)
[2023-11-28] MEDS: Sertraline HCL 25 MG TABLET PO (08:51)
[2023-11-28] MEDS: Naltrexone HCl 50 MG TABLET PO (08:51)
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
== END 2023-11-28 13:15 | disposition home or self-care (01) | DRG 754 ==
LOC: HO.ED 17:06 → HO.PM5 19:25
PROVIDERS: Admitting Provider Social Worker; Emergency Provider Emergency Medicine; Visit Provider Clinical Nurse Specialist Psychiatric/Mental Health, Adult
DX: F32.9 Major depressive disorder, single episode, unspecified (principal); R45.851 Suicidal ideations; F17.210 Nicotine dependence, cigarettes, uncomplicated; F43.10 Post-traumatic stress disorder, unspecified; F10.90 Alcohol use, unspecified, uncomplicated; Z71.6 Tobacco abuse counseling; Z79.899 Other long term (current) drug therapy
CPT/HCPCS: 36415; 80053; 80061; 80307; 81003; 82607; 82746; 83540; 83735; 84443; 85025; 93005; 99285; S9485

== ENCOUNTER → 2023-11-23 13:33 | Outpatient (BNV) | payer MEDICAID, SELFPAY | PROVIDERS: Emergency Provider Emergency Medicine; Visit Provider Internal Medicine Cardiovascular Disease | DX: I48.91 Unspecified atrial fibrillation (principal) | CPT/HCPCS: 93010 ==

== ENCOUNTER → 2023-11-23 19:12 | Outpatient (BNV) | payer MEDICAID, SELFPAY | PROVIDERS: Admitting Provider Social Worker; Emergency Provider Emergency Medicine; Visit Provider Clinical Nurse Specialist Psychiatric/Mental Health, Adult | DX: F32.2 Major depressive disorder, single episode, severe without psychotic features (principal); F43.11 Post-traumatic stress disorder, acute; F10.90 Alcohol use, unspecified, uncomplicated; R45.851 Suicidal ideations | CPT/HCPCS: 99231; 99232 ==